=== PATIENT | male | born 1965 | race Caucasian/White ===

== ENCOUNTER 2016-11-30 17:51 | Emergency (ER) | payer BC ==
[2016-11-30] MEDS ORDERED: diphenhydrAMINE HCL 25 MG CAPSULE ONE (18:41)
[2016-11-30] MEDS ORDERED: diphenhydrAMINE HCL 25 MG CAPSULE PO ONE (18:42)
[2016-11-30] MEDS ORDERED: METHYLPREDNISOLONE ACETATE 80 MG/ML VIAL IM ONE (19:12)
--- NOTE | 2016-11-30 19:13 | ERNOTE ---
Allergy Symptoms - ER Date of Service: 11/30/16 Presenting Symptoms: skin rash, other - ear swelling Time Seen by Provider: 11/30/16 19:09 Source: patient Exam Limitations: no limitations Immunizations: IMMUNIZATION HX Immunizations Up to Date No: unsure History of Influenza Vaccine No Hx Pneumococcal Vaccination No Allergies/Adverse Reactions: Allergies bee venom protein (honey bee) Allergy (Intermediate, Verified 11/30/16 18:12) Hives Home Medications: HOME MEDICATIONS NK [No Home Medication] 11/30/16 [Last Taken Unknown] - History of Present Illness Narrative: Pt. comes in with c/o R ear swelling and hives sincejust prior to arrival related to bee sting that he obtained. Pt. denies any SOB, CP, NVD, fever, recent illness or injury. Pt. has a chronic hx of bee sting allergies that he treats with benadryl, but pt. did not have any benadryl at home that he could take so he denies any prehospital treatment. Review of Systems - Review of Systems Constitutional: Present: no symptoms reported. Absent: recent illness, fever, chills, weakness, fatigue, malaise EYE: Present: no symptoms reported ENT: Present: no symptoms reported Respiratory: Present: no symptoms reported. Absent: shortness of breath, cough , wheezing Cardiology: Present: no symptoms reported. Absent: chest pain, palpitations, edema Gastrointestinal/Abdominal: Present: no symptoms reported Genitourinary: Present: no symptoms reported Musculoskeletal: Present: no symptoms reported Skin: Present: rash - hives on abdomen and neck. R ear swollen and red, other All Other Systems: All systems neg except as marked - Patient's Past Medical History Patient History - Medical: No pertinent hx Patient History - Cardiac/Respiratory: No pertinent hx Patient History - Cancer: No Hx of Cancer Patient History - Surgical Procedures: T & A Patient History - Other: None - Social History Living Situations: home Abuse History: No History of abuse Psych History: No pertinent hx Smoking Status: Never smoker Have you smoked in the past 12 months: No Do you dip or chew tobacco: No Alcohol Use: none - Immunizations Immunizations Up to Date: No - unsure Hx Pneumococcal Vaccination: No History of Influenza Vaccine: No Physical Exam - Physical Exam General Appearance: Present: wd/wn, alert, no apparent distress Head Exam: Present: no evidence of injury, swelling - R ear Eye Exam: Normal inspection: bilateral, PERRL: bilateral, EOMI: bilateral Ears, Nose, Throat: Present: other - R ear pinnal swelling where bee sting occurred no stinger noted Neck: Present: normal inspection, nontender Respiratory: Present: no respiratory distress, normal breath sounds, no accessory muscle use, chest nontender, lungs clear Cardiovascular/Chest: Present: regular rate, rhythm, no murmur, normal peripheral pulses Back Exam: Present: normal inspection, normal range of motion, no CVA tenderness , no vertebral tenderness Extremity Exam: Present: normal inspection, non-tender, normal range of motion, no edema Neurological Exam: Present: alert, oriented, normal mood/affect, no motor/ sensory deficits Skin Exam: Present: normal color, warm/dry, skin rash - two hives on abdomen ED Progress - Vital Signs Patient's Vital Signs:: I have reviewed the patient's vital signs. Vital Signs: Vital Signs 11/30/16 11/30/16 18:13 18:44 Temperature 37.1 C Pulse Rate 65 55 L Respiratory 16 14 Rate Blood Pressure 141/80 134/75 O2 Sat by Pulse 100 100 Oximetry - Progress/Reassessment Chief Complaint: Allergic Reaction Departure Clinical Impression: Bee sting allergy - Departure Disposition: Home self-care Condition: Good Instructions: Bee, Wasp, or Hornet Sting Additional Instructions: Please follow up with primary provider in 2-3 days and continue Benadryl every 6 hours for 24 hours.
[2016-11-30] MEDS ORDERED: METHYLPREDNISOLONE ACETATE 80 MG/ML VIAL ONE (19:15)
[2016-11-30 19:42] VITALS: BP 124/87
== END 2016-11-30 19:40 | disposition home or self-care (01) ==
LOC: ER 17:51
DX: T63.441A Toxic effect of venom of bees, accidental (unintentional), initial encounter (principal)